=== PATIENT | female | born 1960 | race Caucasian/White ===

== ENCOUNTER → 2019-06-20 14:34 | Outpatient (CLI) | payer OTHER | END | disposition home or self-care (01) | LOC: D.RAD 14:34 | PROVIDERS: ATTEND Legal Medicine | DX: M54.6 Pain in thoracic spine (principal); M54.5 Low back pain; M79.7 Fibromyalgia ==

== ENCOUNTER → 2019-07-04 10:33 | Outpatient (CLI) | payer OTHER | END | disposition home or self-care (01) | LOC: D.CT 10:33 | PROVIDERS: ATTEND Legal Medicine | DX: M94.0 Chondrocostal junction syndrome [Tietze] (principal) ==